=== PATIENT | female | born 1965 | race Caucasian/White ===

== ENCOUNTER 2023-09-15 12:56 | Emergency (ER) | payer OTHER, SELFPAY ==
[2023-09-15 13:01] VITALS: BP 148/84
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
== END 2023-09-15 15:37 | disposition home or self-care (01) ==
LOC: EMR 12:56
PROVIDERS: EMERGENCY PHYSICIAN Emergency Medicine
DX: M54.2 Cervicalgia (principal); R51.9 Headache, unspecified
CPT/HCPCS: 99282

== ENCOUNTER → 2024-02-17 13:26 | Outpatient (REF) | payer OTHER, SELFPAY | LOC: HWCARD 13:26 | PROVIDERS: ATTENDING PHYSICIAN Internal Medicine; FAMILY PHYSICIAN Family Medicine | DX: Z01.810 Encounter for preprocedural cardiovascular examination (principal) | CPT/HCPCS: 93005 ==